=== PATIENT | female | born 1955 | race Caucasian/White ===

== ENCOUNTER → 2016-06-22 | Outpatient (CLI) | payer OTHER ==
[~2016-06-22] MED LIST: ALBUTEROL0.09 MG/Ac INH; AMBIEN10 M1 PO; AMOXICILLIN500 MG PO; ANAPROX DS550 MG PO; CEPHALEXIN500 M1 PO; CLARITIN REDITA10 MG PO; CLARITIN10 MG PO; CYCLOBENZAPRINE10 MG PO; DAYPRO600 M1 PO; FLAGYL500 MG PO; FLONASE ALLERG9.9 ML NAS; KETOROLAC10 MG PO; LORAZEPAM1 MG PO; MEDROL DOSEPAK4 MG PO; MOTRIN800 MG PO; Motrin,Rufen800 MG PO; NAPROSYN500 MG PO; NATURE'S BLEND F1 MG PO; OXYCODONE HCL10 M1 PO; OXYCODONE5 M1 PO; PERCOCET 325 MG1 TA7 PO; PERCOCET 500 MG1 TAB PO; PRILOSEC10 MG PO; PROVENTIL0.09 MG/A1 INH; ROBAXIN750 MG PO; SEPTRA DS 800 M1 TAB PO; SEROQUEL400 M1 PO; SOMA350 MG PO; THERA TABS1 TAB PO; VALIUM5 MG PO; VICODIN 5/500 505 MG PO; VICODIN 500 MG-1 TAB PO; VITAMIN B-11 TAB PO
[2016-06-22 11:59] LABS: BASO % 0.3 % (0.0-1.0); EOS # 0.1 10*3/uL (0.0-0.4); EOS % 2.9 % (1.0-4.0); LYMPH # 1.3 10*3/uL (1.3-4.4); LYMPH % 38.3 % (27.0-41.0); MEAN CELL VOLUME 100.5 fl (81.0-99.0); MEAN CORPUSCULAR HGB 34.4 pg (27.0-31.0); MEAN CORPUSCULAR HGB CONC 34.2 g/dl (33.0-37.0); MEAN PLATELET VOLUME 11.2 fl (9.6-12.3); MONO # 0.3 10*3/uL (0.1-1.0); MONO % 8.4 % (3.0-9.0); NEUT # 1.7 10*3/uL (2.3-7.9); NEUT % 49.8 % (47.0-73.0); PLATELET COUNT AUTOMATED 67 10*3/uL (130-400); RED BLOOD COUNT 3.78 10*6/uL (4.10-5.10); WHITE BLOOD COUNT 3.5 10*3/uL (4.8-10.8)
[2016-06-22 12:09] LABS: URINE AMPHETAMINES < 1000 (1000ng/ml); URINE BARBITURATES < 200 (200ng/ml); URINE COCAINE < 300 (300ng/ml)
[2016-06-22 12:22] LABS: ALBUMIN 3.5 gm/dl (3.1-4.5); ALKALINE PHOSPHATASE 92 U/L (45-117); BILIRUBIN, DIRECT 0.3 mg/dL (0.0-0.2); BILIRUBIN, TOTAL 0.7 mg/dl (0.2-1.0); BUN 9 mg/dl (7-24); CARBON DIOXIDE 27 mmol/L (21-32); CHLORIDE 113 mmol/L (98-107); EST GLOM FILT AFRICAN AMERICAN > 60 ml/min; GLUCOSE 51 mg/dL (65-99); POTASSIUM 3.9 mmol/L (3.5-5.1); SGOT/AST 50 IU/L (3-35); SGPT/ALT 54 U/L (12-78); SODIUM 147 mmol/L (136-145); TOTAL PROTEIN 7.6 gm/dL (6.4-8.2)
[2016-06-25 00:08] LABS: HEPATITIS C QUANTITATION 3730000 IU/mL (.)
== END | disposition home or self-care (01) ==
LOC: LAB 10:56
PROVIDERS: Internal Medicine Gastroenterology
DX: B18.2 Chronic viral hepatitis C (principal)

== ENCOUNTER → 2016-12-04 | Outpatient (CLI) | payer SELFPAY ==
[2016-12-04 15:55] LABS: BASO % 0.4 % (0.0-1.0); EOS # 0.2 10*3/uL (0.0-0.4); HEMATOCRIT 38.6 % (37.0-47.0); HEMOGLOBIN 13.6 g/dl (12.0-16.0); LYMPH # 2.3 10*3/uL (1.3-4.4); LYMPH % 40.4 % (27.0-41.0); MEAN CELL VOLUME 94.4 fl (81.0-99.0); MEAN CORPUSCULAR HGB 33.3 pg (27.0-31.0); MEAN CORPUSCULAR HGB CONC 35.2 g/dl (33.0-37.0); MEAN PLATELET VOLUME 11.2 fl (9.6-12.3); MONO # 0.4 10*3/uL (0.1-1.0); MONO % 6.2 % (3.0-9.0); NEUT # 2.8 10*3/uL (2.3-7.9); NEUT % 49.6 % (47.0-73.0); PLATELET COUNT AUTOMATED 83 10*3/uL (130-400); RED BLOOD COUNT 4.09 10*6/uL (4.10-5.10); RED CELL DISTRI WIDTH 12.9 % (0-14.5); WHITE BLOOD COUNT 5.7 10*3/uL (4.8-10.8)
[2016-12-04 15:57] LABS: ALBUMIN 3.7 gm/dl (3.1-4.5); ALKALINE PHOSPHATASE 91 U/L (45-117); BILIRUBIN, DIRECT < 0.1 mg/dL (0.0-0.2); BILIRUBIN, TOTAL 0.5 mg/dl (0.2-1.0); BUN 12 mg/dl (7-24); CARBON DIOXIDE 27 mmol/L (21-32); CHLORIDE 108 mmol/L (98-107); EST GLOM FILT AFRICAN AMERICAN > 60 ml/min; GLUCOSE 93 mg/dL (65-99); POTASSIUM 4.4 mmol/L (3.5-5.1); SGOT/AST 28 IU/L (3-35); SGPT/ALT 22 U/L (12-78); SODIUM 144 mmol/L (136-145); TOTAL PROTEIN 7.9 gm/dL (6.4-8.2)
[2016-12-06 13:15] LABS: HEPATITIS C QUANTITATION HCV Not Detected IU/mL (.)
== END | disposition home or self-care (01) ==
LOC: LAB 15:06
PROVIDERS: Nurse Practitioner Family
DX: B18.2 Chronic viral hepatitis C (principal)

== ENCOUNTER → 2016-12-31 | Outpatient (CLI) | payer MEDICAID | END | disposition home or self-care (01) | LOC: US 12-26 09:00 | DX: K74.60 Unspecified cirrhosis of liver (principal) ==

== ENCOUNTER → 2017-01-20 | Outpatient (CLI) | payer MEDICAID | END | disposition home or self-care (01) | LOC: NM 01-07 02:02 | DX: R10.13 Epigastric pain (principal) ==

== ENCOUNTER → 2017-01-27 | Outpatient (CLI) | payer MEDICAID ==
[2017-01-27 13:30] LABS: EST GLOM FILT AFRICAN AMERICAN > 60 ml/min
== END | disposition home or self-care (01) ==
LOC: LAB 02:43 → CT 02:43
PROVIDERS: Radiology Diagnostic Radiology
DX: M54.16 Radiculopathy, lumbar region (principal)

== ENCOUNTER 2017-07-19 10:04 | Inpatient (IN) | payer OTHER ==
[~2017-07-19] VITALS: Ht 162.5 cm; Wt 72.7 kg
--- NOTE | ~2017-07-19 | EKG ---
[place], [place] ELECTROCARDIOGRAM REPORT NAME: KYM VIGIL UNIT #: [id number] ROOM: [facility] DOCTOR: RAFFY SOTO MD BIRTHDATE: [birth year] DOS: 07/19/2017 TIME: 1029 hours. Normal sinus rhythm at 81 beats per minute. Low voltage T waves in lateral chest leads. Abnormal ECG. No previous tracing is available for comparison. RAFFY SOTO MD CM:EKGRPT:ELECTROCARDIOGRAM REPORT [id number] RAFFY SOTO MD
[2017-07-19 10:12] VITALS: BP 154/90
[2017-07-19 10:33] LABS: BASO % 0.4 % (0.0-1.0); EOS # 0.4 10*3/uL (0.0-0.4); EOS % 4.6 % (1.0-4.0); HEMATOCRIT 43.4 % (37.0-47.0); HEMOGLOBIN 15.2 g/dl (12.0-16.0); LYMPH % 25.2 % (27.0-41.0); MEAN CELL VOLUME 95.4 fl (81.0-99.0); MEAN CORPUSCULAR HGB 33.4 pg (27.0-31.0); MEAN PLATELET VOLUME 10.9 fl (9.6-12.3); MONO # 0.5 10*3/uL (0.1-1.0); MONO % 6.5 % (3.0-9.0); NEUT # 5.1 10*3/uL (2.3-7.9); NEUT % 63.1 % (47.0-73.0); PLATELET COUNT AUTOMATED 122 10*3/uL (130-400); RED BLOOD COUNT 4.55 10*6/uL (4.10-5.10); RED CELL DISTRI WIDTH 13.8 % (0-14.5)
[2017-07-19 10:41] LABS: BILIRUBIN NEGATIVE (NEGATIVE); BLOOD 3+ (NEGATIVE); CLARITY CLOUDY (CLEAR); COLOR YELLOW (YELLOW); GLUCOSE NEGATIVE (NEGATIVE); KETONE TRACE (NEGATIVE); LEUKO ESTERASE 2+ (NEGATIVE); NITRITE POSITIVE (NEGATIVE); PH 5.5 (5.0-9.0); UROBILINOGEN 0.2 E.U./dl (0.2-1.0)
[2017-07-19 10:44] LABS: ACT PARTIAL THROMBO TIME 24.6 SECONDS (20.8-31.5)
[2017-07-19 10:46] VITALS: BP 130/78
[2017-07-19 10:52] LABS: ALBUMIN 4.1 gm/dl (3.1-4.5); ALKALINE PHOSPHATASE 141 U/L (45-117); BUN 9 mg/dl (7-24); CHLORIDE 110 mmol/L (98-107); CREATININE 1.01 mg/dL (0.55-1.02); LIPASE 197 U/L (73-393); POTASSIUM 4.7 mmol/L (3.5-5.1); SGOT/AST 33 IU/L (3-35); SGPT/ALT 26 U/L (12-78); SODIUM 146 mmol/L (136-145); TOTAL PROTEIN 8.6 gm/dL (6.4-8.2)
[2017-07-19 10:53] LABS: BACTERIA 4+
[2017-07-19 10:54] LABS: WBC 41-50 wbc/hpf (0-5)
[2017-07-19 10:59] LABS: URINE AMPHETAMINES < 1000 (1000ng/ml); URINE BARBITURATES < 200 (200ng/ml); URINE BENZODIAZEPINES > 200 (200ng/ml); URINE CANNABINOIDS (THC) > 50 (50ng/ml); URINE COCAINE < 300 (300ng/ml); URINE METHADONE < 300 (300ng/ml); URINE OPIATES < 300 (300ng/ml)
[2017-07-19 11:00] LABS: ACETAMINOPHEN (TYLENOL) < 2.0 ug/ml (10-30); ETHYL ALCOHOL < 3.0 mg/dl (<3); TROPONIN I < 0.015 ng/ml (<0.045)
[2017-07-19 11:00] LABS: URINE PHENCYCLIDINE < 25 (25ng/ml)
[2017-07-19 11:50] VITALS: BP 136/82
[2017-07-19 12:15] VITALS: BP 136/92
[2017-07-19 12:23] VITALS: BP 136/92
[2017-07-19 20:00] VITALS: BP 121/64
[2017-07-20] VITALS: BP 132/85
[2017-07-20 08:00] VITALS: BP 123/78
[2017-07-20 12:00] VITALS: BP 130/82
[2017-07-20 16:00] VITALS: BP 114/71; BP 126/70
[2017-07-20 20:00] VITALS: BP 103/57
[2017-07-21] VITALS: BP 97/62
[2017-07-21 08:00] VITALS: BP 108/56
[2017-07-21 12:00] VITALS: BP 116/78
[2017-07-21 16:00] VITALS: BP 152/90
[2017-07-21 20:48] VITALS: BP 155/89
[2017-07-22] VITALS: BP 105/69
[2017-07-22 06:30] LABS: CREATININE 0.83 mg/dL (0.55-1.02)
[2017-07-22 06:35] LABS: BASO % 0.2 % (0.0-1.0); EOS # 0.2 10*3/uL (0.0-0.4); EOS % 4.4 % (1.0-4.0); HEMATOCRIT 33.5 % (37.0-47.0); HEMOGLOBIN 11.9 g/dl (12.0-16.0); LYMPH # 1.8 10*3/uL (1.3-4.4); LYMPH % 41.6 % (27.0-41.0); MEAN CELL VOLUME 94.4 fl (81.0-99.0); MEAN CORPUSCULAR HGB 33.5 pg (27.0-31.0); MEAN CORPUSCULAR HGB CONC 35.5 g/dl (33.0-37.0); MEAN PLATELET VOLUME 11.1 fl (9.6-12.3); MONO # 0.4 10*3/uL (0.1-1.0); MONO % 8.1 % (3.0-9.0); NEUT % 45.5 % (47.0-73.0); PLATELET COUNT AUTOMATED 81 10*3/uL (130-400); RED BLOOD COUNT 3.55 10*6/uL (4.10-5.10); RED CELL DISTRI WIDTH 13.2 % (0-14.5); WHITE BLOOD COUNT 4.3 10*3/uL (4.8-10.8)
[2017-07-22 08:44] VITALS: BP 124/69
[2017-07-22 12:34] VITALS: BP 109/72
[2017-07-22 16:00] VITALS: BP 147/76
[2017-07-22] MEDS ORDERED: AMINOPHYLLIN200 MG PO (16:18)
[2017-07-22 20:00] VITALS: BP 149/72
[2017-07-23] VITALS: BP 108/51
[2017-07-23 08:44] VITALS: BP 105/68
== END 2017-07-23 11:13 | disposition home or self-care (01) | DRG 897 ==
LOC: ED 10:04 → 5E 11:27 → EDHOLD 11:27 → 5E 11:32
PROVIDERS: Internal Medicine; Nurse Practitioner Family
DX: F10.231 Alcohol dependence with withdrawal delirium (principal); D69.6 Thrombocytopenia, unspecified; N30.01 Acute cystitis with hematuria; F10.239 Alcohol dependence with withdrawal, unspecified; M54.9 Dorsalgia, unspecified; G89.29 Other chronic pain; F17.210 Nicotine dependence, cigarettes, uncomplicated; F41.9 Anxiety disorder, unspecified; Y90.0 Blood alcohol level of less than 20 mg/100 ml; Z88.9 Allergy status to unspecified drugs, medicaments and biological substances; Z87.81 Personal history of (healed) traumatic fracture; Z88.2 Allergy status to sulfonamides; Z84.1 Family history of disorders of kidney and ureter; Z81.1 Family history of alcohol abuse and dependence; Z82.49 Family history of ischemic heart disease and other diseases of the circulatory system; Z82.61 Family history of arthritis; Z79.899 Other long term (current) drug therapy; Z71.6 Tobacco abuse counseling

== ENCOUNTER 2017-10-26 10:47 | Emergency (ER) | payer OTHER ==
[~2017-10-26] VITALS: Ht 162.5 cm; Wt 68.5 kg
[~2017-10-26 10:47] MED LIST changes: +AMINOPHYLLIN200 MG PO
[2017-10-26] MEDS ORDERED: DIAZEPAM10 M1 PO (11:06)
[2017-10-26] MEDS ORDERED: QUETIAPINE FUM400 M1 PO (11:06)
[2017-10-26 11:26] LABS: BASO # 0.1 10*3/uL (0.0-0.1); BASO % 0.6 % (0.0-1.0); EOS # 0.2 10*3/uL (0.0-0.4); EOS % 1.7 % (1.0-4.0); HEMOGLOBIN 15.5 g/dl (12.0-16.0); LYMPH % 34.3 % (27.0-41.0); MEAN CORPUSCULAR HGB 33.8 pg (27.0-31.0); MEAN CORPUSCULAR HGB CONC 34.4 g/dl (33.0-37.0); MEAN PLATELET VOLUME 10.5 fl (9.6-12.3); MONO # 0.6 10*3/uL (0.1-1.0); MONO % 6.3 % (3.0-9.0); NEUT % 56.9 % (47.0-73.0); PLATELET COUNT AUTOMATED 154 10*3/uL (130-400); RED BLOOD COUNT 4.59 10*6/uL (4.10-5.10); RED CELL DISTRI WIDTH 14.1 % (0-14.5); WHITE BLOOD COUNT 8.9 10*3/uL (4.8-10.8)
[2017-10-26 11:33] LABS: BILIRUBIN 1+ (NEGATIVE); BLOOD 3+ (NEGATIVE); CLARITY CLOUDY (CLEAR); COLOR YELLOW (YELLOW); GLUCOSE NEGATIVE (NEGATIVE); KETONE TRACE (NEGATIVE); LEUKO ESTERASE 2+ (NEGATIVE); NITRITE POSITIVE (NEGATIVE); PH 5.5 (5.0-9.0); SPECIFIC GRAVITY >= 1.030 (1.005-1.030); UROBILINOGEN 0.2 E.U./dl (0.2-1.0)
[2017-10-26 11:39] LABS: URINE AMPHETAMINES < 1000 (1000ng/ml); URINE BARBITURATES < 200 (200ng/ml); URINE BENZODIAZEPINES > 200 (200ng/ml); URINE CANNABINOIDS (THC) < 50 (50ng/ml); URINE COCAINE > 300 (300ng/ml); URINE METHADONE < 300 (300ng/ml); URINE OPIATES < 300 (300ng/ml)
[2017-10-26 11:42] LABS: BACTERIA 4+; RBC TNTC rbc/hpf (0-2); URINE PHENCYCLIDINE < 25 (25ng/ml); WBC TNTC wbc/hpf (0-5)
[2017-10-26 11:42] LABS: ALKALINE PHOSPHATASE 116 U/L (45-117); BUN 8 mg/dl (7-24); CHLORIDE 106 mmol/L (98-107); CREATININE 0.88 mg/dL (0.55-1.02); LIPASE 124 U/L (73-393); POTASSIUM 4.5 mmol/L (3.5-5.1); SGOT/AST 35 IU/L (3-35); SGPT/ALT 33 U/L (12-78); SODIUM 140 mmol/L (136-145); TOTAL PROTEIN 8.3 gm/dL (6.4-8.2)
[2017-10-26 11:43] LABS: TROPONIN I < 0.015 ng/ml (<0.045)
[2017-10-26 11:44] LABS: ACETAMINOPHEN (TYLENOL) < 2.0 ug/ml (10-30)
== END 2017-10-26 12:58 | disposition left against medical advice (07) ==
LOC: ED 10:47
PROVIDERS: Nurse Practitioner Family
DX: F10.10 Alcohol abuse, uncomplicated (principal); N39.0 Urinary tract infection, site not specified; F17.200 Nicotine dependence, unspecified, uncomplicated; F12.10 Cannabis abuse, uncomplicated; Z98.890 Other specified postprocedural states; Z90.89 Acquired absence of other organs; Z88.2 Allergy status to sulfonamides; Z88.6 Allergy status to analgesic agent; Z88.8 Allergy status to other drugs, medicaments and biological substances; Z79.899 Other long term (current) drug therapy; Y90.9 Presence of alcohol in blood, level not specified

== ENCOUNTER 2020-05-23 13:55 | Inpatient (IN) | payer OTHER ==
[~2020-05-23] VITALS: Ht 162.6 cm; Wt 70.0 kg
[2020-05-23] VITALS (14 sets, daily range): BP systolic 84–117; BP diastolic 40–72
[~2020-05-23 13:55] MED LIST changes: +AMBIEN5 MG PO; +B12100 MC1 PO; +DIAZEPAM10 M1 PO; +PRILOSEC20 M1 PO; +PROTONIX40 MG PO; +QUETIAPINE FUM400 M1 PO; +VITAMIN D5000 UNI1 PO; +XANAX1 MG PO; +Zofran4 MG SL
--- NOTE | 2020-05-23 14:16 | NUR ---
POSITIVE ORTHOS, PT WITH A SYNCOPAL EPISODE DURING. PT ALSO WITH EMESIS X1 BLACK IN COLOR.
--- NOTE | 2020-05-23 14:44 | NUR ---
PT IS AOX3, PALE IN COLOR. BP 92/50. CALL LIGHT IN REACH WILL MONITOR.
[2020-05-23 14:56] LABS: BASO % 0.2 % (0.0-1.0); EOS # 0.1 10*3/uL (0.0-0.4); EOS % 0.6 % (1.0-4.0); HEMATOCRIT 25.2 % (37.0-47.0); LYMPH # 0.9 10*3/uL (1.3-4.4); LYMPH % 11.2 % (27.0-41.0); MEAN CELL VOLUME 100.4 fl (81.0-99.0); MEAN CORPUSCULAR HGB 32.7 pg (27.0-31.0); MEAN CORPUSCULAR HGB CONC 32.5 g/dl (33.0-37.0); MEAN PLATELET VOLUME 11.4 fl (9.6-12.3); MONO # 0.4 10*3/uL (0.1-1.0); MONO % 4.5 % (3.0-9.0); NEUT # 6.8 10*3/uL (2.3-7.9); NEUT % 83.1 % (47.0-73.0); PLATELET COUNT AUTOMATED 132 10*3/uL (130-400); RED BLOOD COUNT 2.51 10*6/uL (4.10-5.10); RED CELL DISTRI WIDTH 12.3 % (0-14.5); WHITE BLOOD COUNT 8.1 10*3/uL (4.8-10.8)
--- NOTE | 2020-05-23 15:06 | NUR ---
PT RESTING IN BED. A+OX3. DENIES NEEDS AT THIS TIME. RESPIRATIONS EASY AND REGULAR.
[2020-05-23 15:11] LABS: ALBUMIN 2.9 gm/dl (3.1-4.5); ALKALINE PHOSPHATASE 47 U/L (45-117); BUN 63 mg/dl (7-24); CHLORIDE 115 mmol/L (98-107); CREATININE 1.24 mg/dL (0.55-1.02); IRON 262 ug/dL (50-170); LIPASE 154 U/L (73-393); POTASSIUM 4.4 mmol/L (3.5-5.1); SGOT/AST 12 IU/L (3-35); SGPT/ALT 13 U/L (12-78); SODIUM 145 mmol/L (136-145); TOTAL IRON BINDING CAPACITY 293 ug/dl (250-450); TOTAL PROTEIN 5.8 gm/dL (6.4-8.2)
[2020-05-23 15:12] LABS: TROPONIN I < 0.015 ng/ml (<0.045)
[2020-05-23 15:32] LABS: INTERNATIONAL NORM RATIO 1.1 (2.0-3.5)
--- NOTE | 2020-05-23 15:40 | NUR ---
DR. MCKEE NOTIFIED OF CONTINUING HYPOTENSION AFTER FLUIDS.
[2020-05-23 15:42] LABS: FERRITIN 51.6 ng/mL (10.0-291.0)
--- NOTE | 2020-05-23 16:11 | NUR ---
DR. MCKEE AT BEDSIDE TO EXPLAIN BLOOD TRANSFUSION AND NEED FOR. CONSENT OBTAINED AND PLACED IN CHART.
--- NOTE | 2020-05-23 18:54 | NUR ---
Dr. Ruffin called in and orders were recieved.
--- NOTE | 2020-05-23 19:10 | NUR ---
CALLED ICU AND THEY ARE NOT READY FOR THE PATIENT AT THIS TIME.
--- NOTE | 2020-05-23 19:30 | NUR ---
BLOOD TRANSFUSION COMPLETE. PT DENIES COMPLAINTS AT THIS TIME.
[2020-05-23 21:29] LABS: HEMATOCRIT 27.4 % (37.0-47.0)
--- NOTE | 2020-05-23 21:36 | NUR ---
PT RESTING IN BED. DENIES ANY COMPLAINTS AT THIS TIME. CALL LIGHT IN REACH.
[2020-05-24 01:47] VITALS: BP 114/71
--- NOTE | 2020-05-24 01:48 | NUR ---
PT RESTING IN BED. EASILY AWAKENED. A+OX3. DENIES NEEDS AT THIS TIME. BED AJUSTED FOR COMFORT.
[2020-05-24 02:15] VITALS: BP 127/67
--- NOTE | 2020-05-24 02:15 | NUR ---
A 65, admitted to ICCU, under the services of CALIN Swain DO with a diagnosis of GI BLEED. Chief complaint is DIZZY, POSITIVE ORTHO BP'S.. Patient arrived via stretcher from ER. Monitor applied. Initial assessment completed. Vital signs taken and recorded. CALIN SWAIN DO notified of admission to the unit. Orders received. See assessment for past medical history, medications and allergies. Patient and/or family oriented to unit. [facility] ICCU visitation policy reviewed. Clothing/patient valuable form completed. DIAN KING
[2020-05-24 06:25] LABS: BASO % 0.2 % (0.0-1.0); EOS # 0.1 10*3/uL (0.0-0.4); EOS % 0.7 % (1.0-4.0); HEMATOCRIT 26.8 % (37.0-47.0); LYMPH # 2.5 10*3/uL (1.3-4.4); LYMPH % 31.3 % (27.0-41.0); MEAN CORPUSCULAR HGB 31.9 pg (27.0-31.0); MEAN PLATELET VOLUME 11.9 fl (9.6-12.3); MONO # 0.5 10*3/uL (0.1-1.0); MONO % 6.6 % (3.0-9.0); NEUT # 4.9 10*3/uL (2.3-7.9); PLATELET COUNT AUTOMATED 137 10*3/uL (130-400); RED BLOOD COUNT 2.85 10*6/uL (4.10-5.10); RED CELL DISTRI WIDTH 14.8 % (0-14.5)
[2020-05-24 06:28] LABS: ALBUMIN 3.2 gm/dl (3.1-4.5); CHLORIDE 116 mmol/L (98-107); CREATININE 1.08 mg/dL (0.55-1.02); POTASSIUM 3.6 mmol/L (3.5-5.1); SGOT/AST 13 IU/L (3-35); SGPT/ALT 14 U/L (12-78); SODIUM 145 mmol/L (136-145)
[2020-05-24 06:29] LABS: ALKALINE PHOSPHATASE 44 U/L (45-117); TOTAL PROTEIN 5.9 gm/dL (6.4-8.2)
--- NOTE | 2020-05-24 06:44 | NUR ---
PATIENT UP TO [facility] [place] WITH NO PROBLEMS OF DIZZINESS OR PASSING OUT.
--- NOTE | 2020-05-24 06:44 | NUR ---
PATIENT HAD LG SOLID BM THAT WAS DARK IN COLOR.
[2020-05-24 06:46] LABS: BUN 47 mg/dl (7-24)
[2020-05-24 08:00] VITALS: BP 113/63
--- NOTE | 2020-05-24 08:50 | NUR ---
Occupational Therapy evaluation completed on ICCU with full evaluation to follow. Recommend occupational therapy per plan of care and Home with HH upon discharge. Thank you for this referral. Anayeli Ken OTR/L
--- NOTE | 2020-05-24 09:10 | NUR ---
PHYSICAL THERAPY Physical therapy evaluation completed. Full details and evaluation to follow. Low complexity skilled PT evaluation performed ([id number]). PT will work on strength, gait, balance and endurance per POC. Recommend home with home health at discharge.
--- NOTE | 2020-05-24 10:47 | NUR ---
Processor Helper in to talk to patient. Patient states lives at home with a friend. There are 9-10 steps in the home. Physician: Dr. Goode Pharmacy: [facility] Home health services: none Patient's level of ADLs: INDEPENDENT Patient has working utilities: yes DME: none Follow-up physician's appointment after d/c: will be made by the hospitalist nurse director upon discharge Does patient want to access PORTAL?: no Discharge plan discussed with patient. She is sitting up in her bedside recliner. She lives at home with a friend. She states she is independent in her ADLs and ambulation. Discussed home health care services and she denies. CM will continue to follow for any discharge planning needs. When medically stable she will be discharged to home. She states she doesn't have transportation on discharge. Discussed her insurance being able to provide transportation and she verbalized an understanding. interstate planner notified. GOGO ARROYO
[2020-05-24 12:00] VITALS: BP 118/61
--- NOTE | 2020-05-24 15:26 | NUR ---
Nutritional Support Services Note: Dx of GI bleed, acute blood loss, hypotension, moderate protein calorie malnutrition. Soft diet as ordered with Ensure po TID. Staff to encourage po intake. [place] food preferences. No other nutrition intervention needed at this time. Will follow as needed. Jesenia Estevez Rdn Ld
[2020-05-24 16:00] VITALS: BP 137/47
[2020-05-24 20:00] VITALS: BP 102/54
--- NOTE | 2020-05-24 21:24 | NUR ---
PT RESTING IN BED, DENIES C/O, NO DISTRESS NOTED
[2020-05-25] VITALS: BP 96/58
[2020-05-25 04:00] VITALS: BP 96/56
--- NOTE | 2020-05-25 04:00 | NUR ---
PT SLEEPING RESPIRATIONS EVEN AND EASY
[2020-05-25 06:49] LABS: BASO % 0.3 % (0.0-1.0); EOS # 0.1 10*3/uL (0.0-0.4); EOS % 2.8 % (1.0-4.0); LYMPH # 1.4 10*3/uL (1.3-4.4); LYMPH % 38.3 % (27.0-41.0); MEAN CELL VOLUME 94.4 fl (81.0-99.0); MEAN CORPUSCULAR HGB 31.8 pg (27.0-31.0); MEAN CORPUSCULAR HGB CONC 33.6 g/dl (33.0-37.0); MEAN PLATELET VOLUME 11.8 fl (9.6-12.3); MONO # 0.2 10*3/uL (0.1-1.0); MONO % 6.4 % (3.0-9.0); NEUT # 1.9 10*3/uL (2.3-7.9); NEUT % 51.9 % (47.0-73.0); RED BLOOD COUNT 2.33 10*6/uL (4.10-5.10); RED CELL DISTRI WIDTH 14.6 % (0-14.5); WHITE BLOOD COUNT 3.6 10*3/uL (4.8-10.8)
[2020-05-25 06:56] LABS: PLATELET COUNT AUTOMATED 91 10*3/uL (130-400)
[2020-05-25 07:02] LABS: BUN 20 mg/dl (7-24); CHLORIDE 116 mmol/L (98-107); POTASSIUM 3.4 mmol/L (3.5-5.1); SODIUM 145 mmol/L (136-145)
--- NOTE | 2020-05-25 07:15 | NUR ---
24 HR chart check completed.
[2020-05-25 08:00] VITALS: BP 100/62; BP 136/72
[2020-05-25 12:00] VITALS: BP 96/50
--- NOTE | 2020-05-25 12:00 | NUR ---
PER PATIENT, HER BM IS NO LONGER DARK IN COLOR TODAY.
[2020-05-25 12:55] LABS: BASO % 0.3 % (0.0-1.0); EOS # 0.1 10*3/uL (0.0-0.4); EOS % 2.6 % (1.0-4.0); HEMATOCRIT 23.1 % (37.0-47.0); LYMPH # 1.3 10*3/uL (1.3-4.4); LYMPH % 33.4 % (27.0-41.0); MEAN CELL VOLUME 94.3 fl (81.0-99.0); MEAN CORPUSCULAR HGB 31.4 pg (27.0-31.0); MEAN CORPUSCULAR HGB CONC 33.3 g/dl (33.0-37.0); MEAN PLATELET VOLUME 10.5 fl (9.6-12.3); MONO # 0.3 10*3/uL (0.1-1.0); MONO % 6.9 % (3.0-9.0); NEUT # 2.2 10*3/uL (2.3-7.9); NEUT % 56.5 % (47.0-73.0); PLATELET COUNT AUTOMATED 90 10*3/uL (130-400); RED BLOOD COUNT 2.45 10*6/uL (4.10-5.10); RED CELL DISTRI WIDTH 14.2 % (0-14.5); WHITE BLOOD COUNT 3.9 10*3/uL (4.8-10.8)
[2020-05-25] MEDS ORDERED: PROTONIX TR40 M1 PO (13:14)
[2020-05-25] MEDS ORDERED: Carafate1 GM PO (13:16)
[2020-05-25 16:00] VITALS: BP 100/60
--- NOTE | 2020-05-25 17:00 | NUR ---
DISCUSSED PLAN WITH PATIENT REGRADING NPO AFTER MIDNIGHT FOR POSSIBLE EGD. PT HAS NO COMPLAINTS AT THIS TIME. CALL LIGHT IN REACH.
[2020-05-25 20:00] VITALS: BP 128/71
--- NOTE | 2020-05-25 20:39 | NUR ---
SPOK WITH DR. MISHRA TO OBTAIN AN ORDER FOR A ONE TIME DOSE OF XANAX SHE HAD AN NPO ORDER FOR A POSSIBLE EGDT TOMORROW MORNING. HE SAID TO GIVE THE DOSE WITH A SIP OF [id number].
[2020-05-26] VITALS: BP 98/53
--- NOTE | 2020-05-26 01:30 | NUR ---
24 HR chart check completed.
--- NOTE | 2020-05-26 02:37 | NUR ---
PT REQUESTED A DRINK, I EXPLAINED THAT DR. MARTELL WANTED TO DO A EGDT IN THE MORNING AND SHE SHOULD REMAIN NPO UNTIL AFTER IT IS COMPLETED. SHE STATED THAT "SHE HAS BEEN HERE FOR 2-3 DAYS AND IT HASN'T BEEN DONE YET, SO ITS NOT GOING TO GET DONE." SHE IS REFUSING THE PROCEDURE AT THIS TIME EVEN AFTER A FULL EXPLANATION.
--- NOTE | 2020-05-26 07:40 | NUR ---
PATIENT NOW AGREEABLE TO EGD, STATES HAD A COUPLE SIPS OF SODA LAST AT 4 OR 6AM, WILL NOTIFY DR. MARTELL THIS MORNING, PATIENT INSTRUCTED TO REMAIN NPO UNTIL TEST COMPLETED.
[2020-05-26 08:00] VITALS: BP 100/58
[2020-05-26 08:06] LABS: BASO % 0.5 % (0.0-1.0); EOS # 0.1 10*3/uL (0.0-0.4); EOS % 2.9 % (1.0-4.0); HEMATOCRIT 22.1 % (37.0-47.0); LYMPH # 1.5 10*3/uL (1.3-4.4); LYMPH % 37.5 % (27.0-41.0); MEAN CELL VOLUME 93.6 fl (81.0-99.0); MEAN CORPUSCULAR HGB 31.4 pg (27.0-31.0); MEAN CORPUSCULAR HGB CONC 33.5 g/dl (33.0-37.0); MEAN PLATELET VOLUME 10.5 fl (9.6-12.3); MONO # 0.3 10*3/uL (0.1-1.0); MONO % 6.6 % (3.0-9.0); NEUT # 2.2 10*3/uL (2.3-7.9); NEUT % 52.3 % (47.0-73.0); PLATELET COUNT AUTOMATED 94 10*3/uL (130-400); RED BLOOD COUNT 2.36 10*6/uL (4.10-5.10); RED CELL DISTRI WIDTH 14.1 % (0-14.5); WHITE BLOOD COUNT 4.1 10*3/uL (4.8-10.8)
[2020-05-26 08:19] LABS: BUN 11 mg/dl (7-24); CHLORIDE 116 mmol/L (98-107); CREATININE 0.88 mg/dL (0.55-1.02); POTASSIUM 3.5 mmol/L (3.5-5.1); SODIUM 146 mmol/L (136-145)
--- NOTE | 2020-05-26 10:35 | NUR ---
ADMINISTERED PO NORCO X 1 ORDERED FOR EPIGASTRIC PAIN.
--- NOTE | 2020-05-26 11:09 | NUR ---
NORCO EFFECTIVE, PER PATIENT.
[2020-05-26 12:00] VITALS: BP 109/45
[2020-05-26 16:00] VITALS: BP 122/56
[2020-05-26 20:00] VITALS: BP 131/70
--- NOTE | 2020-05-26 20:55 | NUR ---
PT RESTING IN BED. RESP-EASY AND REUGLAR. NO C/O AT THIS TIME. CALL LIGHT IN REACH. TOLERATED ROUTINE MED WITH NO PROBLEM. MEDICATED WITH AMBIEN PO PER ROUTINE ORDER FOR INSOMNIA. SEE EMAR. CALL LIGHT IN REACH.
[2020-05-27] VITALS: BP 117/63
--- NOTE | 2020-05-27 00:20 | NUR ---
RESTING IN BED WITH EYES CLOSED. RESP-EASY AND REGULAR. NO C/O AT THIS TIME. CALL LIGHT IN REACH. SEE SHIFT ASSESSMENT.
--- NOTE | 2020-05-27 04:00 | NUR ---
SLEEPING IN BED. RESP-EASY AND REGULAR. CALL LIGHT IN REACH.
--- NOTE | 2020-05-27 06:00 | NUR ---
RESTING IN BED. NPO FOR POSSIBLE TEST TODAY. CALL LIGHT IN REACH.
[2020-05-27 06:27] LABS: BASO % 0.4 % (0.0-1.0); EOS # 0.1 10*3/uL (0.0-0.4); EOS % 3.6 % (1.0-4.0); HEMATOCRIT 21.9 % (37.0-47.0); LYMPH # 1.2 10*3/uL (1.3-4.4); LYMPH % 44.2 % (27.0-41.0); MEAN CELL VOLUME 94.8 fl (81.0-99.0); MEAN CORPUSCULAR HGB 31.6 pg (27.0-31.0); MEAN CORPUSCULAR HGB CONC 33.3 g/dl (33.0-37.0); MONO # 0.2 10*3/uL (0.1-1.0); MONO % 6.8 % (3.0-9.0); NEUT # 1.3 10*3/uL (2.3-7.9); PLATELET COUNT AUTOMATED 106 10*3/uL (130-400); RED BLOOD COUNT 2.31 10*6/uL (4.10-5.10); RED CELL DISTRI WIDTH 14.1 % (0-14.5); WHITE BLOOD COUNT 2.8 10*3/uL (4.8-10.8)
[2020-05-27 08:00] VITALS: BP 102/52
--- NOTE | 2020-05-27 08:30 | NUR ---
OT NOTE Pt was seen this A.M. 1:1 for 15 minute OT session. Upon arrival pt was up walking around the room independent. Pt identified by name and and had no complaints at this time. Pt sat in recliner while doffing and donning B socks and slippers idependent. She then stood while managing the straps on her gown independent. Functional mobility completed into the bathroom where she transferred on/off standard commode independent and then stood sink side while simulating washing her hands independent. Throughout pt presented with G- dynamic standing balance. Challenged pt's activity tolerance which she was able to tolerate aprox 10 minutes at a time. Pt was left sitting upright in the recliner with call light in hand, tray table in place, and phone in reach. Continue with rec D/C plan to home with home health. KAILA Lott/Shant
--- NOTE | 2020-05-27 08:33 | NUR ---
PHYSICAL THERAPY Patient presented to therapy in standing coming out of bathroom in room. Patient reports no pain or other complaints. Patient is not on IVs, spO2 and does not have a catheter. Patient gives informed consent for treatment. Patient was identified by name and on wristband. Patient STS out of bedside chair with Supervision. Patient STS <> commode with Supervision. Patient performed ambulation with Close Supervision and no assistive device for 550' x 1 around entrie 5 th floor with no LOB, SOB or other difficulty. Patient was left in bedside chair with with call light within reach and LEs in low position. Patient is Indenpendent in room throughout the day. KAILA Marin present as witness to this treatment. MAHIN LEE PROCEDURES RN
--- NOTE | 2020-05-27 09:00 | NUR ---
CM in to see patient. No new needs or request at this time. When medically stable she will be discharged to home. Phone number given to patient for transportation through his insurance in case she is not able to find transportation home. She verbalized an understanding.
--- NOTE | 2020-05-27 09:15 | NUR ---
NOTIFIED OF LAB RESULTS & OBAINED ORDER FOR EGD TODAY.
--- NOTE | 2020-05-27 10:38 | NUR ---
PT TAKEN OFF FLOOR FOR SURGERY AT THIS TIME.
[2020-05-27 11:05] VITALS: BP 125/67
[2020-05-27 11:30] VITALS: BP 94/34
[2020-05-27 11:43] VITALS: BP 106/59
[2020-05-27 11:57] VITALS: BP 96/52
[2020-05-27] MEDS ORDERED: PROTONIX TR40 M1 PO (12:06)
--- NOTE | 2020-05-27 12:30 | NUR ---
PATIENT CAME TO DESK AND SAID HER RIDE WOULD BE AT HOSPITAL IN 10 MIN. TOLD PT I WAS IN WITH AN ADMISSION SO I WOULD BE A FEW MINUTES. PATIENT WANTED IV REMOVED. DISCONTINUED IV AT THIS TIME. WENT TO ROOM TO HAVE PT SIGN PAPERS AND PATIENT HAD LEFT. WILL TRY TO CONTACT HER.
--- NOTE | 2020-05-28 07:41 | NUR ---
OCCUPATIONAL THERAPY CO-SIGN I approve of the Occupational Therapy notes written above. MOLLY MCKEON, OTR/L
--- NOTE | 2020-05-28 07:56 | NUR ---
PHYSICAL THERAPY CO-SIGN I approve of the Physical Therapy notes written above. Karlene Burris PT
== END 2020-05-27 12:30 | disposition home or self-care (01) | DRG 241 ==
LOC: ED 13:55 → 5E 16:09 → EDHOLD 16:09 → ICCU 16:09 → EDHOLD 16:45 → ICCU 18:14 → EDHOLD 18:14 → ICCU 18:14 → 5E 05-24 18:52
PROVIDERS: Emergency Medicine; Internal Medicine; Internal Medicine Gastroenterology; Registered Nurse; ADMIT Internal Medicine; ATTEND Internal Medicine
PROC: 30233N1 Transfusion of Nonautologous Red Blood Cells into Peripheral Vein, Percutaneous Approach (ICD-10-PCS; 2020-05-23)
PROC: 0DB78ZX Excision of Stomach, Pylorus, Via Natural or Artificial Opening Endoscopic, Diagnostic (ICD-10-PCS; principal; 2020-05-27)
DX: K29.71 Gastritis, unspecified, with bleeding (principal); K26.4 Chronic or unspecified duodenal ulcer with hemorrhage; D62 Acute posthemorrhagic anemia; K44.9 Diaphragmatic hernia without obstruction or gangrene; N17.0 Acute kidney failure with tubular necrosis; I95.1 Orthostatic hypotension; E44.0 Moderate protein-calorie malnutrition; F17.210 Nicotine dependence, cigarettes, uncomplicated; D53.9 Nutritional anemia, unspecified; R73.9 Hyperglycemia, unspecified; F41.9 Anxiety disorder, unspecified; B19.20 Unspecified viral hepatitis C without hepatic coma; E78.5 Hyperlipidemia, unspecified; E87.8 Other disorders of electrolyte and fluid balance, not elsewhere classified; E83.41 Hypermagnesemia; Z88.2 Allergy status to sulfonamides; Z88.6 Allergy status to analgesic agent; Z88.8 Allergy status to other drugs, medicaments and biological substances; Z90.49 Acquired absence of other specified parts of digestive tract; Z80.6 Family history of leukemia; Z82.49 Family history of ischemic heart disease and other diseases of the circulatory system; Z81.1 Family history of alcohol abuse and dependence; Z82.61 Family history of arthritis; Z84.1 Family history of disorders of kidney and ureter; Z80.7 Family history of other malignant neoplasms of lymphoid, hematopoietic and related tissues; Z83.3 Family history of diabetes mellitus; Z79.899 Other long term (current) drug therapy; Z68.26 Body mass index [BMI] 26.0-26.9, adult